=== PATIENT | female | born 1990 | race Caucasian/White ===

== ENCOUNTER → 2017-05-28 | Outpatient (CLI) | payer OTHER ==
[~2017-05-28] MED LIST: CODACE30 PO; Mirena1 EACH VAG; RXCODACET PO
[2017-05-31 12:22] LABS: HPV Genotype 16 Not Detected (NOTDET); HPV Genotype 18 Not Detected (NOTDET); HPV High Risk Other Not Detected (NOTDET)
== END | disposition home or self-care (01) ==
LOC: OLS 13:43 → LAB SHORT 13:43
PROVIDERS: Obstetrics & Gynecology Gynecology
DX: Z12.4 Encounter for screening for malignant neoplasm of cervix (principal)
CPT/HCPCS: 87624; G0123

== ENCOUNTER 2018-01-11 12:13 | Day surgery (SDC) | payer OTHER ==
[~2018-01-11] VITALS: Ht 170.2 cm; Wt 59.9 kg
== END 2018-01-11 16:08 | disposition home or self-care (01) ==
LOC: ORSCSDS 12:13
PROVIDERS: Obstetrics & Gynecology Gynecology
PROC: 0UB04ZZ Excision of Right Ovary, Percutaneous Endoscopic Approach (ICD-10-PCS; principal; 2018-01-11 13:00)
DX: D27.0 Benign neoplasm of right ovary (principal); Z79.899 Other long term (current) drug therapy
CPT/HCPCS: 88305; J0690; J1100; J1885; J2250; J2405; J2710; J3010; J7120